=== PATIENT | male | born 1990 | race Caucasian/White ===

== ENCOUNTER 2018-02-19 08:46 | Emergency (ER) | payer MEDICAID ==
[~2018-02-19] VITALS: Ht 182.9 cm; Wt 72.7 kg
[~2018-02-19 08:46] MED LIST: TRAM50TA2 PO
[2018-02-19] MEDS ORDERED: ACETAMINOPHEN 500 MG TABLET ONE (09:58)
[2018-02-19] MEDS ORDERED: KETOROLAC 30 MG/1 ML ONE (09:58)
[2018-02-19] MEDS ORDERED: ACETAMINOPHEN 325 MG TABLET PO ONE (10:00)
[2018-02-19] MEDS ORDERED: KETOROLAC 30 MG/1 ML IM ONE (10:00)
[2018-02-19 10:01] VITALS: BP 108/59
[2018-02-19 10:18] LABS: BASOPHILS # (AUTO) 0.02 x10^3/uL (0-0.1); BASOPHILS % (AUTO) 1 % (0-1); EOSINOPHILS % (AUTO) 0 % (1-7); LYMPHOCYTES # (AUTO) 0.77 x10^3/uL (1-3.4); LYMPHOCYTES % (AUTO) 22 % (22-44); MD NO; MEAN CORPUSCULAR HEMOGLOBIN 29.7 pg (27.5-34.5); MEAN CORPUSCULAR HGB CONC 33.8 g/dL (33.2-36.2); MEAN PLATELET VOLUME 8.6 fL (7.4-10.4); MONOCYTES # (AUTO) 0.62 x10^3/uL (0.2-0.8); MONOCYTES % (AUTO) 18 % (2-9); NEUTROPHILS % (AUTO) 60 % (42-75); PLATELET COUNT 181 x10^3/uL (130-400); RED BLOOD COUNT 4.81 x10^6/uL (4.38-5.82); RED CELL DISTRIBUTION WIDTH 12.5 % (9.4-14.8)
[2018-02-19 10:25] LABS: ANION GAP 6 mmol/L (5-15); CALCIUM 8.5 mg/dL (8.5-10.1); CHLORIDE 103 mmol/L (98-107)
[2018-02-19 10:29] LABS: RAPID INFLUENZA A Negative (Negative); RAPID INFLUENZA B Negative (Negative)
== END 2018-02-19 11:46 | disposition home or self-care (01) ==
LOC: ED 09:50
DX: B34.9 Viral infection, unspecified (principal)
CPT/HCPCS: 36415; 71046; 80048; 82040; 85025; 87400; 96372; 99285; J1885

== ENCOUNTER 2018-03-08 15:32 | Emergency (ER) | payer MEDICAID ==
[~2018-03-08] VITALS: Ht 182.9 cm; Wt 71.6 kg
[2018-03-08 15:37] VITALS: BP 92/44
[2018-03-08] MEDS ORDERED: METHOCARBAMOL 750 MG TABLET ONE (16:07)
[2018-03-08] MEDS ORDERED: IBUPROFEN 200 MG TABLET ONE (16:07)
[2018-03-08] MEDS ORDERED: METHOCARBAMOL 750 MG TABLET PO ONE (16:30)
[2018-03-08] MEDS ORDERED: IBUPROFEN 200 MG TABLET PO ONE (16:30)
== END 2018-03-08 16:23 | disposition home or self-care (01) ==
LOC: ED 16:00
DX: S29.012A Strain of muscle and tendon of back wall of thorax, initial encounter (principal); F41.1 Generalized anxiety disorder; X58.XXXA Exposure to other specified factors, initial encounter; Y93.89 Activity, other specified; Y92.89 Other specified places as the place of occurrence of the external cause; Y99.8 Other external cause status
CPT/HCPCS: 99283

== ENCOUNTER 2018-03-10 07:48 | Emergency (ER) | payer MEDICAID ==
[~2018-03-10] VITALS: Ht 182.9 cm; Wt 71.3 kg
[2018-03-10 07:50] VITALS: BP 101/54
[2018-03-10] MEDS ORDERED: KETOROLAC 30 MG/1 ML ONE (08:09)
[2018-03-10] MEDS ORDERED: CYCLOBENZAPRINE 10 MG TABLET ONE (08:09)
[2018-03-10] MEDS ORDERED: KETOROLAC 30 MG/1 ML IM ONE (08:30)
[2018-03-10] MEDS ORDERED: CYCLOBENZAPRINE 10 MG TABLET PO ONE (08:30)
== END 2018-03-10 08:43 | disposition home or self-care (01) ==
LOC: ED 08:37
DX: S29.012A Strain of muscle and tendon of back wall of thorax, initial encounter (principal); X58.XXXA Exposure to other specified factors, initial encounter; Y93.89 Activity, other specified; Y92.89 Other specified places as the place of occurrence of the external cause; Y99.8 Other external cause status
CPT/HCPCS: 71046; 96372; 99284; J1885

== ENCOUNTER 2018-03-15 09:34 | Emergency (ER) | payer MEDICAID ==
[~2018-03-15] VITALS: Ht 182.9 cm; Wt 75.0 kg
[2018-03-15 09:40] VITALS: BP 102/69
[2018-03-15] MEDS ORDERED: CYCL5TAB PO (09:55)
== END 2018-03-15 10:19 | disposition home or self-care (01) ==
LOC: ED 10:09
DX: G89.29 Other chronic pain (principal); M54.6 Pain in thoracic spine
CPT/HCPCS: 99283

== ENCOUNTER 2018-03-17 18:39 | Emergency (ER) | payer MEDICAID ==
[~2018-03-17] VITALS: Ht 182.9 cm; Wt 70.5 kg
[~2018-03-17 18:39] MED LIST changes: +CYCL5TAB PO
[2018-03-17] MEDS ORDERED: ONDANSETRON ODT 4 MG PO ONE (19:00)
[2018-03-17] MEDS ORDERED: ONDANSETRON ODT 4 MG ONE (19:14)
[2018-03-17 19:30] LABS: BASOPHILS # (AUTO) 0.02 x10^3/uL (0-0.1); BASOPHILS % (AUTO) 0 % (0-1); EOSINOPHILS # (AUTO) 0.07 x10^3/uL (0-0.4); EOSINOPHILS % (AUTO) 1 % (1-7); LYMPHOCYTES # (AUTO) 0.64 x10^3/uL (1-3.4); LYMPHOCYTES % (AUTO) 8 % (22-44); MD NO; MEAN CORPUSCULAR HEMOGLOBIN 30.3 pg (27.5-34.5); MEAN CORPUSCULAR HGB CONC 34.3 g/dL (33.2-36.2); MEAN CORPUSCULAR VOLUME 88.3 fL (81-97); MEAN PLATELET VOLUME 8.8 fL (7.4-10.4); MONOCYTES # (AUTO) 0.33 x10^3/uL (0.2-0.8); MONOCYTES % (AUTO) 4 % (2-9); NEUTROPHILS # (AUTO) 6.63 x10^3/uL (1.8-6.8); NEUTROPHILS % (AUTO) 86 % (42-75); PLATELET COUNT 165 x10^3/uL (130-400); RED BLOOD COUNT 5.22 x10^6/uL (4.38-5.82); RED CELL DISTRIBUTION WIDTH 12.9 % (9.4-14.8)
[2018-03-17 19:39] LABS: ANION GAP 5 mmol/L (5-15); CALCIUM 8.9 mg/dL (8.5-10.1); CHLORIDE 109 mmol/L (98-107)
[2018-03-17 20:03] VITALS: BP 112/56
[2018-03-17 20:11] LABS: MICROSCOPIC NOT IND
[2018-03-17 20:19] LABS: AMPHETAMINE SCREEN, URINE Negative (Negative); BARBITURATE SCREEN, URINE Negative (Negative); BENZODIAZEPINE SCREEN, URINE Negative (Negative); CANNABINOID SCREEN, URINE Negative (Negative); COCAINE SCREEN, URINE Negative (Negative); CULTURE INDICATED? NO; METHADONE SCREEN, URINE Negative (Negative); OPIATE SCREEN, URINE Negative (Negative)
== END 2018-03-17 21:02 | disposition left against medical advice (07) ==
LOC: ED 20:06
DX: R11.2 Nausea with vomiting, unspecified (principal); R10.84 Generalized abdominal pain
CPT/HCPCS: 36415; 80048; 80307; 81003; 85025; 99284; Q0162

== ENCOUNTER 2020-09-09 18:07 | Emergency (ER) | payer SELFPAY ==
[~2020-09-09] VITALS: Ht 182.9 cm; Wt 65.0 kg
--- NOTE | 2020-09-09 18:19 | NUR ---
pt calm and cooperative with cares, denies pain or complaint, no signs or symptoms of acute distress noted respirations even and unlabored. sw at bedside to assess.
--- NOTE | 2020-09-09 18:52 | NUR ---
pt able to consume offered diet tray verbalizes satisfaction and appreciation for cares and concerns. pt calm and cooperative in bed denies pain or discomfort at this time.
[2020-09-09 19:31] VITALS: BP 132/87
== END 2020-09-09 19:33 | disposition home or self-care (01) ==
LOC: ED 19:30
DX: F99 Mental disorder, not otherwise specified (principal); R94.31 Abnormal electrocardiogram [ECG] [EKG]; Z59.0 Homelessness
CPT/HCPCS: 93005; 99283